=== PATIENT | female | born 1965 | race Caucasian/White ===

== ENCOUNTER 2017-04-12 16:54 | Observation (INO) | payer BC, OTHER ==
[~2017-04-12] VITALS: Ht 172.7 cm; Wt 168.3 kg
[~2017-04-12 16:54] MED LIST: PRENTAB26
[2017-04-12] MEDS ORDERED: SODIUM CHLORIDE 0.9% 1000ML 1,000 ML IV STA (18:37)
[2017-04-12] MEDS ORDERED: CALC500T85 PO (18:40)
[2017-04-12] MEDS ORDERED: CYAN100020 PO (18:40)
[2017-04-12] MEDS ORDERED: OPTIRAY 320 IV PRN (18:45)
[2017-04-12] MEDS ORDERED: MoRPHine SULFATE 10 MG/ML CARP/VIAL IV STA (18:46)
[2017-04-12] MEDS ORDERED: ONDANSETRON INJ 2 MG/ML 2 ML VIAL IV STA ×2 (18:46→22:44)
[2017-04-12] MEDS ORDERED: ONDANSETRON INJ 2 MG/ML 2 ML VIAL ONE (19:22)
[2017-04-12] MEDS ORDERED: MoRPHine SULFATE 10 MG/ML CARP/VIAL ONE (19:23)
[2017-04-12 19:28] LABS: BASO % 0.3 %; BASO ABS # 0.04 K/uL (0-0.2); COMPLETE YES; EOS % 1.7 %; HEMATOCRIT 38.8 % (37-47); IG% 0.3 %; LYMPH % 22.5 %; LYMPH ABS # 3.13 K/uL (1.2-3.4); MEAN CELL VOLUME 82.4 fL (80-100); MEAN CORPUSCULAR HEMOGLOBIN 27.8 pg (25-34); MEAN CORPUSCULAR HGB CONC 33.8 g/dl (32-36); MEAN PLATELET VOLUME 10.5 fL (7.4-10.4); MONO % 7.4 %; NEUT % 67.8 %; PLATELET COUNT 255 K/uL (130-400); RED BLOOD COUNT 4.71 M/uL (4.2-5.4); WHITE BLOOD COUNT 13.91 K/uL (4.8-10.8)
[2017-04-12 19:32] LABS: URINE APPEARANCE CLEAR (CLEAR); URINE BILIRUBIN NEG (NEG); URINE COLOR YELLOW; URINE EPITHELIAL CELL AUTO >30 /lpf (0-5); URINE NITRITE NEG (NEG); URINE PH 5.5 (4.5-7.5); URINE SPECIFIC GRAVITY 1.031 (1.000-1.030); UROBILINOGEN NEG (NEG); ZZUR CULT IF INDIC CLEAN CATCH NO
[2017-04-12 19:38] LABS: MANUAL MICROSCOPIC REQUIRED? NO; REVIEW REQ? NO
[2017-04-12 19:45] LABS: BUN/CREATININE RATIO 14.5 (10-20); CALCIUM 8.8 mg/dl (8.5-10.1); CREATININE 0.83 mg/dl (0.60-1.20); POTASSIUM 3.9 mmol/L (3.5-5.1)
[2017-04-12 19:48] LABS: ALB/GLOB RATIO 0.7 (0.9-2)
--- NOTE | 2017-04-12 20:43 | DIAGNOSTIC IMAGING REPORT ---
CT OF THE ABDOMEN AND PELVIS WITH CONTRAST CLINICAL HISTORY: Right lower quadrant abdominal pain. COMPARISON STUDY: None. TECHNIQUE: Following IV administration of 93 mL of Optiray-320, axial images of the abdomen and pelvis were obtained from the lung bases to the proximal femurs. Images were reviewed in the axial, sagittal, and coronal planes. IV contrast was administered without complication. A dose lowering technique was utilized adhering to the principles of ALARA. CT DOSE: 2216.71 mGy.cm FINDINGS: Lung bases are clear. There is no significant biliary ductal dilatation status post cholecystectomy. Mild hepatomegaly is present. There is borderline splenomegaly. The adrenal glands are nodular with possible hypodense nodules which may reflect adenomas. The findings are benign. The kidneys and pancreas are unremarkable. No hydronephrosis is present. There is no peripancreatic infiltration. The caliber and wall thickness of small and large bowel are normal. The appendix is normal. There is no pneumatosis, free air or portal venous gas. There is mild infiltration within the anterior aspect of the pelvis. A small amount of fluid which measures slightly above water attenuation is noted within the pelvis as well as along the inferior aspect the right hepatic lobe. There is no fluid collection to suggest an abscess. There is apparent endometrial thickening which is suboptimally assessed by CT. The ovaries are not well visualized on this exam but do not appear to be enlarged. There is no evidence for a bowel obstruction. There is laxity of the lower anterior abdominal wall with a possible fat-containing hernia. No suspicious skeletal lesions are identified. IMPRESSION: 1. Normal appendix. 2. Mild anterior pelvic infiltration with a small amount of fluid within the pelvis and along the inferior right hepatic lobe. Fluid measures above water attenuation and a small amount of hemoperitoneum possibly due to ruptured hemorrhagic cyst could have this imaging appearance. Alternately, an infectious process could appear similar. Correlation with beta hCG levels is recommended to exclude the possibility of an ectopic . 3. Endometrial thickening. This may be related to phase of menstrual cycle however a follow-up pelvic ultrasound could be obtained for further evaluation. 4. No bowel obstruction. Electronically signed by: Ren Flanagan M.D. 04/12/2017 8:41 PM Dictated Date/Time: 04/12/2017 8:29 PM
--- NOTE | 2017-04-12 23:00 | DIAGNOSTIC IMAGING REPORT ---
PELVIC ULTRASOUND CLINICAL HISTORY: Right-sided pelvic pain. Abnormal CT. COMPARISON STUDY: CT of the abdomen and pelvis April 12, 2017. TECHNIQUE: Transabdominal and transvaginal sonography of the pelvis was performed. FINDINGS: This exam was compromised due to suboptimal penetration related to body habitus. Neither ovary was visualized. A small amount of fluid was noted within the pelvis. The uterus was enlarged, measuring 12.5 x 6 x 9 cm. Endometrium measures 1.5 cm in thickness. Several nabothian cysts were noted. IMPRESSION: 1. Endometrial thickness of 1.5 cm. This could be correlated with phase of menstrual cycle. 2. Nonvisualization of the ovaries. Study compromised by suboptimal penetration. 3. Small amount of fluid within the pelvis. Electronically signed by: Ren Flanagan M.D. 04/12/2017 10:59 PM Dictated Date/Time: 04/12/2017 10:57 PM
[2017-04-12] MEDS ORDERED: KETOROLAC TROMETHAMINE 30 MG/ML VIAL IV STA (23:13)
[2017-04-13] MEDS ORDERED: HYDROmorphone INJ 1 MG/ML SYR IV PRN (00:15)
[2017-04-13 00:59] LABS: PARTIAL THROMBOPLASTIN RATIO 1.1
[2017-04-13 01:20] LABS: HEMATOCRIT 37.5 % (37-47)
--- NOTE | 2017-04-13 01:23 | EMERGENCY ROOM VISIT NOTE ---
History First contact with patient: 18:08 Chief Complaint: ABDOMINAL PAIN Stated Complaint: ABD PAIN Nursing Triage Summary: Patient c/o mid lower right abdominal pain since Tuesday. Got period . Pain is getting worse. Associates nausea, denies n/d. Last BM 1 week ago, hasn't taken meds. Denies urinary symptoms. History of Present Illness The patient is a 51 year old female who presents to the Emergency Room with complaints of right lower quadrant abdominal pain 3 days. The patient states that she currently has her menstrual period and has severe abdominal pain. The pain is located in the right lower abdomen. She rates the discomfort a 7/10. She has associated nausea, but no vomiting. She denies any urinary symptoms, fevers/chills or abnormal vaginal discharge. The patient reports that she has a history of heavy menstrual periods and sometimes has painful periods. She started Depo-Provera last month due to heavy bleeding. She follows with [facility] in [place]. She states that she has had a workup for the heavy bleeding, but no cause has been found. The patient does admit that she has not had a bowel movement in 1 week and feels like she could be constipated. She has not taken anything at home for pain. Review of Systems A complete 10 point review of systems was reviewed with the patient with pertinent positives and negatives as per history of present illness. All else were negative. Social History Smoking Status: Former Smoker Current/Historical Medications Scheduled Calcium (Ra Calcium), 500 MG PO DAILY Cyanocobalamin (Vitamin B12), 1,000 MCG PO DAILY Allergies Coded Allergies: Ampicillin (Verified Allergy, Mild, 04/12/17) Sulfa Drugs (Verified Allergy, Mild, 04/12/17) Sulfamethoxazole (Verified Allergy, Mild, 04/12/17) Trimethoprim (Verified Allergy, Mild, 04/12/17) Cephalosporins (Unverified Allergy, Unknown, UNKNOWN, 04/12/17) Physical Exam Vital Signs Date Time Temp Pulse Resp B/P (MAP) Pulse Ox O2 Delivery O2 Flow Rate FiO2 04/13/17 00:17 85 21 120/79 93 Room Air 04/12/17 22:59 93 20 119/76 93 Room Air 04/12/17 21:16 98 18 137/89 92 Room Air 04/12/17 20:44 94 12 155/83 94 Room Air Manual 04/12/17 19:00 93 20 167/100 97 Room Air 04/12/17 17:03 36.7 108 20 140/86 99 Physical Exam VITALS: Vitals are noted on the nurse's note and reviewed by myself. Vital signs stable. GENERAL: This is a 51-year-old obese female, tearful, appears uncomfortable. EYES: Pupils equal round and reactive to light and accommodation. MOUTH: Mucous membranes moist. NECK: Supple without nuchal rigidity. HEART: Regular rate and rhythm without murmurs gallops or rubs. LUNGS: Clear to auscultation bilaterally without wheezes, rales or rhonchi. ABDOMEN: Positive bowel sounds x 4. Soft, mild generalized tenderness with moderate tenderness over the right lower quadrant. No guarding or rebound tenderness. PELVIC: External genitalia unremarkable. Small amount of blood from the cervical os. No abnormal or foul-smelling discharge. No cervical motion or adnexal tenderness. NEURO: Patient was alert and oriented to person place and time. Medical Decision & Procedures ER Provider Diagnostic Interpretation: CT OF THE ABDOMEN AND PELVIS WITH CONTRAST IMPRESSION: 1. Normal appendix. 2. Mild anterior pelvic infiltration with a small amount of fluid within the pelvis and along the inferior right hepatic lobe. Fluid measures above water attenuation and a small amount of hemoperitoneum possibly due to ruptured hemorrhagic cyst could have this imaging appearance. Alternately, an infectious process could appear similar. Correlation with beta hCG levels is recommended to exclude the possibility of an ectopic . 3. Endometrial thickening. This may be related to phase of menstrual cycle however a follow-up pelvic ultrasound could be obtained for further evaluation. 4. No bowel obstruction. PELVIC ULTRASOUND IMPRESSION: 1. Endometrial thickness of 1.5 cm. This could be correlated with phase of menstrual cycle. 2. Nonvisualization of the ovaries. Study compromised by suboptimal penetration. 3. Small amount of fluid within the pelvis. Laboratory Results 04/12/17 19:10 Red Blood Count 4.71, Mean Corpuscular Volume 82.4, Mean Corpuscular Hemoglobin 27.8, Mean Corpuscular Hemoglobin Concent 33.8, Mean Platelet Volume 10.5, Neutrophils (%) (Auto) 67.8, Lymphocytes (%) (Auto) 22.5, Monocytes (%) (Auto) 7.4, Eosinophils (%) (Auto) 1.7, Basophils (%) (Auto) 0.3, Neutrophils # (Auto) 9.44, Lymphocytes # (Auto) 3.13, Monocytes # (Auto) 1.03, Eosinophils # (Auto) 0.23, Basophils # (Auto) 0.04 04/12/17 19:10 Test 04/12/17 19:00 04/12/17 19:10 04/13/17 01:06 Urine Color YELLOW Urine Appearance CLEAR (CLEAR) Urine pH 5.5 (4.5-7.5) Urine Specific [place] 1.031 (1.000-1.030) Urine Protein TRACE (NEG) Urine Glucose (UA) NEG (NEG) Urine Ketones TRACE (NEG) Urine Occult Blood 3+ (NEG) Urine Nitrite NEG (NEG) Urine Bilirubin NEG (NEG) Urine Urobilinogen NEG (NEG) Urine Leukocyte Esterase TRACE (NEG) Urine WBC (Auto) 5-10 /hpf (0-5) Urine RBC (Auto) 5-10 /hpf (0-4) Urine Hyaline Casts (Auto) 1-5 /lpf (0-5) Urine Epithelial Cells (Auto) >30 /lpf (0-5) Urine Bacteria (Auto) NEG (NEG) Urine Test NEG (NEG) White Blood Count 13.91 K/uL (4.8-10.8) Red Blood Count 4.71 M/uL (4.2-5.4) Hemoglobin 13.1 g/dL (12.0-16.0) Hematocrit 38.8 % (37-47) Mean Corpuscular Volume 82.4 fL (80-100) Mean Corpuscular Hemoglobin 27.8 pg (25-34) Mean Corpuscular Hemoglobin Concent 33.8 g/dl (32-36) Platelet Count 255 K/uL (130-400) Mean Platelet Volume 10.5 fL (7.4-10.4) Neutrophils (%) (Auto) 67.8 % Lymphocytes (%) (Auto) 22.5 % Monocytes (%) (Auto) 7.4 % Eosinophils (%) (Auto) 1.7 % Basophils (%) (Auto) 0.3 % Neutrophils # (Auto) 9.44 K/uL (1.4-6.5) Lymphocytes # (Auto) 3.13 K/uL (1.2-3.4) Monocytes # (Auto) 1.03 K/uL (0.11-0.59) Eosinophils # (Auto) 0.23 K/uL (0-0.5) Basophils # (Auto) 0.04 K/uL (0-0.2) RDW Standard Deviation 39.3 fL (36.4-46.3) RDW Coefficient of Variation 13.0 % (11.5-14.5) Immature Granulocyte % (Auto) 0.3 % Immature Granulocyte # (Auto) 0.04 K/uL (0.00-0.02) Activated Partial Thromboplast Time 27.4 SECONDS (21.0-31.0) Partial Thromboplastin Ratio 1.1 Anion Gap 7.0 mmol/L (3-11) Est Creatinine Clear Calc Drug Dose 133.5 ml/min Estimated GFR () 96.0 Estimated GFR (Non- 82.8 BUN/Creatinine Ratio 14.5 (10-20) Calcium Level 8.8 mg/dl (8.5-10.1) Magnesium Level 2.0 mg/dl (1.8-2.4) Total Bilirubin 0.9 mg/dl (0.2-1) Aspartate Amino Transf (AST/SGOT) 9 U/L (15-37) Alanine Aminotransferase (ALT/SGPT) 16 U/L (12-78) Alkaline Phosphatase 72 U/L (45-117) Total Protein 7.8 gm/dl (6.4-8.2) Albumin 3.2 gm/dl (3.4-5.0) Globulin 4.6 gm/dl (2.5-4.0) Albumin/Globulin Ratio 0.7 (0.9-2) Lipase 118 U/L (73-393) Medications Administered Medications (Trade) Dose Ordered Sig/Sy Route Start Time Stop Time Status Last Admin Dose Admin Sodium Chloride 1,000 ml @ 999 mls/hr Q1H1M STAT IV 04/12/17 18:37 04/12/17 19:37 DC 04/12/17 18:37 999 MLS/HR Morphine Sulfate (MoRPHine SULFATE INJ) 8 mg NOW STAT IV 04/12/17 18:46 04/12/17 18:48 DC 04/12/17 19:27 8 MG Ondansetron HCl (Zofran Inj) 4 mg NOW STAT IV 04/12/17 18:46 04/12/17 18:48 DC 04/12/17 19:27 4 MG Ondansetron HCl (Zofran Inj) 4 mg NOW STAT IV 04/12/17 22:44 04/12/17 22:45 DC 04/12/17 22:56 4 MG Ketorolac Tromethamine (Toradol Inj) 30 mg NOW STAT IV 04/12/17 23:13 04/12/17 23:14 DC 04/12/17 23:23 30 MG Hydromorphone HCl (Dilaudid Inj) 1 mg Q1H PRN IV 04/13/17 00:15 04/27/17 00:14 04/13/17 00:22 1 MG ED Course The patient was evaluated as above. Labs were drawn and IV access was obtained. Patient was medicated with 8 mg morphine IV, 4 mg Zofran IV, and 1 L normal saline solution. CT of the abdomen and pelvis was performed and read by radiology as above. Patient was reevaluated and findings were discussed. Pelvic ultrasound was ordered. Ultrasound was performed. Patient is still having pain and was given 30 mg Toradol IV. Pelvic exam was performed. Patient was reevaluated and findings were discussed. Options of care including discharge home versus admission/observation for pain control were discussed with the patient and her sister. The sister does not feel she will be able to take the patient home in this amount of pain. The patient like to stay. Case was discussed with the [facility] hospitalist, Dr. Alvarez. He requested that I speak with [facility] [employer]. I discussed the case with Dr. Briones of [facility]. He is agreeable to consult on the patient tomorrow. Medical Decision Differential diagnosis includes ovarian cyst, ovarian torsion, appendicitis, colitis, constipation, urinary tract infection, PID, mesenteric ischemia, among others. The patient is a 51-year-old female who presents today complaining of right lower quadrant abdominal pain. Labs revealed mild leukocytosis of 13,000 consistent with infection or possibly stress/pain. No concerning anemia or electrolyte abnormalities. Urinalysis was suggestive of contamination. CT of the abdomen and pelvis showed findings consistent with possible ruptured ovarian cyst versus infectious process. A pelvic exam was performed and showed no abnormal discharge or CMT/adnexal tenderness, making infectious process unlikely. Pelvic ultrasound was performed but was unable to visualize the ovaries secondary to patient body habitus. The patient was initially treated with morphine for pain, however she did not tolerate this well and felt that it made her very nauseous. She was then treated with Toradol without relief. A reevaluated the patient multiple times and explained findings multiple times with the patient and her sister. They were very upset that the patient had to wait in the waiting room and that the testing was taking several hours to complete without any clear answers. I attempted to explain that the emergency department was very busy and we were doing everything we could to keep the patient comfortable. I discussed options of care including discharged home with pain medication versus admission/ observation. The patient's sister seemed upset that we would consider sending the patient home and did not feel like the patient to return home. The patient also felt that she would be more comfortable staying in the hospital. For this reason, the [facility] hospitalist service was consulted. Case was also discussed with [facility]. The patient's case was reviewed with Dr. Reilly, ED attending physician, who agreed with my assessment and treatment plan. Medication reconciliation: I attest that I have personally reviewed the patient 's current medication list. Blood Pressure Screening: Patient was found to have a slightly elevated blood pressure due to circumstances which improved after pain control. I do not believe that the patient requires hypertension monitoring. Impression Primary Impression: Right lower quadrant abdominal pain Departure Information Referrals Radha Reyes M.D. (PCP) Patient Instructions My [facility]
[2017-04-13] MEDS ORDERED: LACTULOSE SYRUP 20 GM/30 ML UDC PO STA ×3 (01:27→06:22)
[2017-04-13] MEDS ORDERED: ACETAMINOPHEN 325 MG TAB PO PRN (01:30)
[2017-04-13] MEDS ORDERED: GLUCOSE 10 TABS/TUBE PO PRN (01:30)
[2017-04-13] MEDS ORDERED: PROMETHAZINE HCL INJ 12.5 MG in SODIUM CHLORIDE 0.9% 50ML 50 ML IV PRN (01:30)
[2017-04-13] MEDS ORDERED: HYDROmorphone INJ 0.5 MG/0.5 ML SYR IV PRN (01:30)
[2017-04-13] MEDS ORDERED: LORAZEPAM 2 MG/ML 1 ML VIAL IV PRN (01:30)
[2017-04-13] MEDS ORDERED: DEXTROSE 50% 50 ML SYR IV PRN (01:30)
[2017-04-13] MEDS ORDERED: ONDANSETRON INJ 2 MG/ML 2 ML VIAL IV PRN (01:30)
[2017-04-13] MEDS ORDERED: GLUCOSE 40% GEL 15 GM TUBE PO PRN (01:30)
[2017-04-13] MEDS ORDERED: IBUPROFEN 200 MG TAB PO PRN (01:30)
[2017-04-13] MEDS ORDERED: GLUCAGON FOR INJ 1 MG VIAL SQ PRN (01:30)
[2017-04-13] MEDS ORDERED: TRAMADOL HCL 50 MG TAB PO PRN (01:30)
[2017-04-13] MEDS ORDERED: POLYETHYLENE (MIRALAX) 17 GM PACK PO PRN (01:30)
[2017-04-13] MEDS ORDERED: POLYETHYLENE (MIRALAX) 17 GM PACK PO STA (01:47)
[2017-04-13] MEDS ORDERED: NSS + 20MEQ KCL 1000ML 1,000 ML IV ONE (03:00)
[2017-04-13 03:05] VITALS: BP 129/79; PULSE 86; TEMP 36.6; O2SAT 91; Ht 172.7 cm; Wt 168.3 kg
[2017-04-13 05:45] LABS: BASO % 0.1 %; BASO ABS # 0.01 K/uL (0-0.2); COMPLETE YES; EOS % 0.5 %; HEMATOCRIT 36.9 % (37-47); IG% 0.2 %; LYMPH % 13.1 %; LYMPH ABS # 1.65 K/uL (1.2-3.4); MEAN CELL VOLUME 83.9 fL (80-100); MEAN CORPUSCULAR HEMOGLOBIN 27.5 pg (25-34); MEAN CORPUSCULAR HGB CONC 32.8 g/dl (32-36); MEAN PLATELET VOLUME 10.1 fL (7.4-10.4); MONO % 7.8 %; NEUT % 78.3 %; PLATELET COUNT 233 K/uL (130-400); WHITE BLOOD COUNT 12.55 K/uL (4.8-10.8)
[2017-04-13] MEDS ORDERED: IV FLUIDS COMPLETED PRN (06:00)
--- NOTE | 2017-04-13 06:25 | HISTORY & PHYSICAL EXAMINATION ---
DATE OF ADMISSION: 04/13/2017 PRIMARY CARE PHYSICIAN: Dr. Reyes. CHIEF COMPLAINT: Right lower quadrant pain. HISTORY OF PRESENT ILLNESS: History obtained from patient, patient's sister and records. Medical history significant for obesity, past tobacco abuse, prediabetes. Over the last few days, the patient noted right lower quadrant achy excruciating, coinciding with her menstrual period. Vaginal bleeding not unusually heavy. No chest pain, no shortness of breath, no fever, no dysuria. No bowel movement for 1 week as per patient. Intractable pain in the Emergency Room. MEDICAL HISTORY: As above. Px was seeing [facility] gynecology in [place], Dr. Cordon, for menorrhagia status post failed ablation. Last visit 02/24/2017. Trial of Depo-Provera injection, Possible hysterectomy if without success. SURGERIES: She has had cholecystectomy, gynecologic procedures. Cataract surgery. FAMILY HISTORY: Diabetes, melanoma. PERSONAL AND SOCIAL HISTORY: Past tobacco abuse. No chronic intake of alcoholic beverages. She is a correspondence renew clerk. HOME MEDICATIONS: Include cyanocobalamin, cholecalciferol, metformin, Depo-Provera. ALLERGIES: AMPICILLIN, LEVOFLOXACIN AND SULFA. REVIEW OF SYSTEMS: As per HPI, all other ROS negative. PHYSICAL EXAMINATION: VITAL SIGNS: Blood pressure was noted to be 140/86, pulse rate 108, later 98, RR 20, temperature 36.7, sats 99 on room air. GENERAL: Noted to be obese, slightly uncomfortable, no distress. SKIN: Normal color. HEENT: [place] palpebral conjunctivae. Dry mucosa. NECK: Short neck. LUNGS: Decreased breath sounds. HEART: Regular rate and rhythm. ABDOMEN: Right lower quadrant tenderness. EXTREMITIES: Minimal lower extremity edema, no tenderness NEUROLOGIC: No gross focality. LABS: Hemoglobin 13.1, hematocrit 38, white blood count 13.9, platelets 255. Sodium 140, potassium 3.9, chloride 108, CO2 of 26, BUN 12, creatinine 0.8, glucose was noted to be 90. CT of the abdomen and pelvis showed normal appendix, mild anterior pelvic inflammation, small amount of fluid in pelvis and inferior right hepatic lobe, small amount of hemoperitoneum, endometrial thickening. ASSESSMENT: 1. Intractable abdominal pain multifactorial : ruptured hemorrhagic ovarian cyst with hemoperitoneum constipation. 2. Prediabetes, BGs stable 3. past tobacco abuse. PLAN : OBS GMF analgesia preferably with NSAIDs, judicious narcotic use given constipation Laxatives Gynecology consult RE R pelvic pain, abnormal CT (ER provider in touch with Dr. Briones) DVT prophylaxis SCDs Re: Hemoperitoneum. Full code. Patient's sister requesting updates from providers, Ms. Lucio Mak Brenda at [phone]. MTDD
[2017-04-13 06:34] LABS: ESTIMATED AVERAGE GLUCOSE 117 mg/dl; HA1C FLAG Normal (Normal)
[2017-04-13] MEDS: KETOROLAC TROMETHAMINE 30 MG/ML VIAL IV PRN ×2 (06:36→16:33)
[2017-04-13 07:08] VITALS: BP 148/91; PULSE 88; TEMP 36.7; O2SAT 91
[2017-04-13] MEDS: INSULIN ASPART 100 UNITS/ML 3 ML PEN SC SCH ×4 (07:51→20:45)
[2017-04-13 08:00] VITALS: O2SAT 91
[2017-04-13 12:00] LABS: HEMATOCRIT 35.4 % (37-47)
[2017-04-13] MEDS: DOCUSATE SODIUM/SENNA 50/8.6MG TAB PO SCH ×2 (13:03→20:35)
[2017-04-13] MEDS: CYANOCOBALAMIN 500 MCG TAB (VIT B-12) PO SCH (13:07)
--- NOTE | 2017-04-13 14:58 | Progress Note ---
Internal Med Progress Note Date of Service: Apr 13, 2017. Provider Documentation: SUBJECTIVE: The patient was seen and examined Still complains of right lower quadrant pain Heavy vaginal bleeding continues Bowel moved this morning OBJECTIVE: Vital Signs-as noted below Exam: General-Very Obese wiht minimal discomfort at rets Eyes-normal ENT-normal Neck-supple Lungs-Clear to ausucltate bilaterally Heart-Regular,no murmur Abdomen-Distended,soft,difficult to feel for any organs mildly tender RLQ and Hypogastrium Extremities-Trace edema bilaterally Neuro-AAOx3 Lab data as noted below. CT of the Abdomen and Pelvis 1. Normal appendix. 2. Mild anterior pelvic infiltration with a small amount of fluid within the pelvis and along the inferior right hepatic lobe. Fluid measures above water attenuation and a small amount of hemoperitoneum possibly due to ruptured hemorrhagic cyst could have this imaging appearance. Alternately, an infectious process could appear similar. Correlation with beta hCG levels is recommended to exclude the possibility of an ectopic . 3. Endometrial thickening. This may be related to phase of menstrual cycle however a follow-up pelvic ultrasound could be obtained for further evaluation. 4. No bowel obstruction. Transvaginal US::1. Endometrial thickness of 1.5 cm. This could be correlated with phase of menstrual cycle. 2. Nonvisualization of the ovaries. Study compromised by suboptimal penetration. 3. Small amount of fluid within the pelvis. ASSESSMENT & PLAN: Intractable abdominal pain Multifactorial : -ruptured hemorrhagic ovarian cyst with hemoperitoneum -constipation.---Bowel moved and No obstruction -Menorrhagia Analgesia preferably with NSAIDs, judicious narcotic use given constipation Laxatives Gynecology consult RE CT and US as above Await HOMOEOPATH evaluation Likely to be discharged today Obesity Will need OP counselling Prediabetes, BGs stable Past tobacco abuse. DVT prophylaxis SCDs Re: Hemoperitoneum. Full code. Discussed with Significant other Vital Signs: Date Time Temp Pulse Resp B/P (MAP) Pulse Ox O2 Delivery O2 Flow Rate FiO2 04/13/17 08:00 91 Nasal Cannula 2.0 04/13/17 07:08 36.7 88 18 148/91 (110) 91 04/13/17 03:05 36.6 86 18 129/79 91 Nasal Cannula 2.0 04/13/17 02:01 78 17 123/71 95 Room Air 04/13/17 00:17 85 21 120/79 93 Room Air 04/12/17 22:59 93 20 119/76 93 Room Air 04/12/17 21:16 98 18 137/89 92 Room Air 04/12/17 20:44 94 12 155/83 94 Room Air Manual 04/12/17 19:00 93 20 167/100 97 Room Air 04/12/17 17:03 36.7 108 20 140/86 99 Lab Results: Results Past 24 Hours Test 04/12/17 19:00 04/12/17 19:10 04/13/17 01:06 04/13/17 05:37 Range/Units Urine Color YELLOW Urine Appearance CLEAR CLEAR Urine pH 5.5 4.5-7.5 Urine Specific [place] 1.031 1.000-1.030 Urine Protein TRACE NEG Urine Glucose (UA) NEG NEG Urine Ketones TRACE NEG Urine Occult Blood 3+ NEG Urine Nitrite NEG NEG Urine Bilirubin NEG NEG Urine Urobilinogen NEG NEG Urine Leukocyte Esterase TRACE NEG Urine WBC (Auto) 5-10 0-5 /hpf Urine RBC (Auto) 5-10 0-4 /hpf Urine Hyaline Casts (Auto) 1-5 0-5 /lpf Urine Epithelial Cells (Auto) >30 0-5 /lpf Urine Bacteria (Auto) NEG NEG Urine Test NEG NEG White Blood Count 13.91 12.55 4.8-10.8 K/uL Red Blood Count 4.71 4.40 4.2-5.4 M/uL Hemoglobin 13.1 12.2 12.1 12.0-16.0 g/dL Hematocrit 38.8 37.5 36.9 37-47 % Mean Corpuscular Volume 82.4 83.9 80-100 fL Mean Corpuscular Hemoglobin 27.8 27.5 25-34 pg Mean Corpuscular Hemoglobin Concent 33.8 32.8 32-36 g/dl Platelet Count 255 233 130-400 K/uL Mean Platelet Volume 10.5 10.1 7.4-10.4 fL Neutrophils (%) (Auto) 67.8 78.3 % Lymphocytes (%) (Auto) 22.5 13.1 % Monocytes (%) (Auto) 7.4 7.8 % Eosinophils (%) (Auto) 1.7 0.5 % Basophils (%) (Auto) 0.3 0.1 % Neutrophils # (Auto) 9.44 9.82 1.4-6.5 K/uL Lymphocytes # (Auto) 3.13 1.65 1.2-3.4 K/uL Monocytes # (Auto) 1.03 0.98 0.11-0.59 K/uL Eosinophils # (Auto) 0.23 0.06 0-0.5 K/uL Basophils # (Auto) 0.04 0.01 0-0.2 K/uL RDW Standard Deviation 39.3 39.2 36.4-46.3 fL RDW Coefficient of Variation 13.0 12.9 11.5-14.5 % Immature Granulocyte % (Auto) 0.3 0.2 % Immature Granulocyte # (Auto) 0.04 0.03 0.00-0.02 K/uL Activated Partial Thromboplast Time 27.4 21.0-31.0 SECONDS Partial Thromboplastin Ratio 1.1 Sodium Level 141 136-145 mmol/L Potassium Level 3.9 3.5-5.1 mmol/L Chloride Level 108 98-107 mmol/L Carbon Dioxide Level 26 21-32 mmol/L Anion Gap 7.0 3-11 mmol/L Blood Urea Nitrogen 12 7-18 mg/dl Creatinine 0.83 0.60-1.20 mg/dl Est Creatinine Clear Calc Drug Dose 133.5 ml/min Estimated GFR () 96.0 Estimated GFR (Non- 82.8 BUN/Creatinine Ratio 14.5 10-20 Random Glucose 90 70-99 mg/dl Estimated Average Glucose 117 mg/dl Hemoglobin A1c 5.7 4.5-5.6 % Calcium Level 8.8 8.5-10.1 mg/dl Magnesium Level 2.0 1.8-2.4 mg/dl Total Bilirubin 0.9 0.2-1 mg/dl Aspartate Amino Transf (AST/SGOT) 9 15-37 U/L Alanine Aminotransferase (ALT/SGPT) 16 12-78 U/L Alkaline Phosphatase 72 45-117 U/L Total Protein 7.8 6.4-8.2 gm/dl Albumin 3.2 3.4-5.0 gm/dl Globulin 4.6 2.5-4.0 gm/dl Albumin/Globulin Ratio 0.7 0.9-2 Lipase 118 73-393 U/L Lactic Acid Level 0.6 0.4-2.0 mmol/L Test 04/13/17 07:39 04/13/17 11:24 04/13/17 11:50 Range/Units Bedside Glucose 115 92 70-90 mg/dl Hemoglobin 11.7 12.0-16.0 g/dL Hematocrit 35.4 37-47 % Microbiology Results 04/13/17 Blood Culture, Received Pending 04/13/17 Blood Culture, Received Pending 04/12/17 Urine Culture, Received Pending
[2017-04-13 15:26] VITALS: BP 122/76; PULSE 87; TEMP 36.8; O2SAT 95
[2017-04-13 23:14] VITALS: PULSE 87; O2SAT 94
[2017-04-14 00:24] VITALS: BP 128/74; PULSE 81; TEMP 36.7; O2SAT 95
[2017-04-14] MEDS: KETOROLAC TROMETHAMINE 30 MG/ML VIAL IV PRN (06:38)
[2017-04-14 07:23] LABS: BASO % 0.2 %; BASO ABS # 0.02 K/uL (0-0.2); COMPLETE YES; EOS % 3.5 %; HEMATOCRIT 35.5 % (37-47); IG% 0.3 %; LYMPH % 23.9 %; LYMPH ABS # 2.31 K/uL (1.2-3.4); MEAN CELL VOLUME 83.1 fL (80-100); MEAN CORPUSCULAR HEMOGLOBIN 27.9 pg (25-34); MEAN CORPUSCULAR HGB CONC 33.5 g/dl (32-36); MEAN PLATELET VOLUME 10.5 fL (7.4-10.4); MONO % 7.6 %; NEUT % 64.5 %; PLATELET COUNT 227 K/uL (130-400); RED BLOOD COUNT 4.27 M/uL (4.2-5.4); WHITE BLOOD COUNT 9.65 K/uL (4.8-10.8)
[2017-04-14 07:42] VITALS: BP 138/70; PULSE 86; TEMP 36.8; O2SAT 91
[2017-04-14 08:00] VITALS: O2SAT 91
[2017-04-14] MEDS: INSULIN ASPART 100 UNITS/ML 3 ML PEN SC SCH (08:01)
[2017-04-14] MEDS: CYANOCOBALAMIN 500 MCG TAB (VIT B-12) PO SCH (08:38)
[2017-04-14] MEDS: DOCUSATE SODIUM/SENNA 50/8.6MG TAB PO SCH (08:38)
--- NOTE | 2017-04-14 10:50 | Progress Note ---
Internal Med Progress Note Date of Service: Apr 14, 2017. Provider Documentation: SUBJECTIVE: The patient was seen and examined Still complains of right lower quadrant pain Heavy vaginal bleeding continues-intermittently Bowel moved yesterday OBJECTIVE: Vital Signs-as noted below Exam: General-Very Obese with minimal discomfort at rest Eyes-normal ENT-normal Neck-supple Lungs-Clear to ausucltate bilaterally Heart-Regular,no murmur Abdomen-Distended,soft,difficult to feel for any organs mildly tender RLQ and epigastrium Extremities-Trace edema bilaterally Neuro-AAOx3 Lab data as noted below. CT of the Abdomen and Pelvis 1. Normal appendix. 2. Mild anterior pelvic infiltration with a small amount of fluid within the pelvis and along the inferior right hepatic lobe. Fluid measures above water attenuation and a small amount of hemoperitoneum possibly due to ruptured hemorrhagic cyst could have this imaging appearance. Alternately, an infectious process could appear similar. Correlation with beta hCG levels is recommended to exclude the possibility of an ectopic . 3. Endometrial thickening. This may be related to phase of menstrual cycle however a follow-up pelvic ultrasound could be obtained for further evaluation. 4. No bowel obstruction. Transvaginal US::1. Endometrial thickness of 1.5 cm. This could be correlated with phase of menstrual cycle. 2. Nonvisualization of the ovaries. Study compromised by suboptimal penetration. 3. Small amount of fluid within the pelvis. ASSESSMENT & PLAN: Intractable abdominal pain Multifactorial : -ruptured hemorrhagic ovarian cyst with hemoperitoneum -constipation.---Bowel moved and No obstruction -Menorrhagia Analgesia preferably with NSAIDs, judicious narcotic use given constipation Laxatives Gynecology consult RE CT and US as above Await SPANISH INSTRUCTOR evaluation Abdominal pain is a little better Likely to be discharged today after evaluation by SPANISH INSTRUCTOR Obesity Will need OP counselling Prediabetes, BGs stable Past tobacco abuse. DVT prophylaxis SCDs Re: Hemoperitoneum. Full code. Discussed with Significant other Vital Signs: Date Time Temp Pulse Resp B/P (MAP) Pulse Ox O2 Delivery O2 Flow Rate FiO2 04/14/17 08:00 91 Nasal Cannula 04/14/17 07:42 36.8 86 18 138/70 (92) 91 Room Air 04/14/17 00:24 36.7 81 20 128/74 (92) 95 CPAP 04/14/17 00:00 CPAP 04/13/17 23:14 87 94 04/13/17 16:10 Room Air 04/13/17 15:26 36.8 87 20 122/76 (91) 95 Lab Results: Results Past 24 Hours Test 04/13/17 11:24 04/13/17 11:50 04/13/17 16:30 04/13/17 20:43 Range/Units Bedside Glucose 92 80 79 70-90 mg/dl Hemoglobin 11.7 12.0-16.0 g/dL Hematocrit 35.4 37-47 % Test 04/14/17 06:50 04/14/17 07:40 Range/Units White Blood Count 9.65 4.8-10.8 K/uL Red Blood Count 4.27 4.2-5.4 M/uL Hemoglobin 11.9 12.0-16.0 g/dL Hematocrit 35.5 37-47 % Mean Corpuscular Volume 83.1 80-100 fL Mean Corpuscular Hemoglobin 27.9 25-34 pg Mean Corpuscular Hemoglobin Concent 33.5 32-36 g/dl Platelet Count 227 130-400 K/uL Mean Platelet Volume 10.5 7.4-10.4 fL Neutrophils (%) (Auto) 64.5 % Lymphocytes (%) (Auto) 23.9 % Monocytes (%) (Auto) 7.6 % Eosinophils (%) (Auto) 3.5 % Basophils (%) (Auto) 0.2 % Neutrophils # (Auto) 6.22 1.4-6.5 K/uL Lymphocytes # (Auto) 2.31 1.2-3.4 K/uL Monocytes # (Auto) 0.73 0.11-0.59 K/uL Eosinophils # (Auto) 0.34 0-0.5 K/uL Basophils # (Auto) 0.02 0-0.2 K/uL RDW Standard Deviation 39.3 36.4-46.3 fL RDW Coefficient of Variation 13.0 11.5-14.5 % Immature Granulocyte % (Auto) 0.3 % Immature Granulocyte # (Auto) 0.03 0.00-0.02 K/uL Bedside Glucose 91 70-90 mg/dl
--- NOTE | 2017-04-14 11:35 | Progress Note ---
Progress Note Date of Service Apr 14, 2017. Progress Note EMERGENCY DEPARTMENT CLINICIAN Consult Consult placed by Dr Vidales Pt seen and examined Consult dictated A/Plan Vag. bleeding is presently minimal and stable Stable H/H Pt will l f/u with Dr Cabral her Primary EMERGENCY DEPARTMENT CLINICIAN in [place] She has already scheduled an appt. with his office Thank you for the consult
[2017-04-14 11:37] VITALS: BP 138/70; PULSE 86; TEMP 36.8; O2SAT 91
--- NOTE | 2017-04-14 11:52 | Discharge Instructions ---
Discharge Instructions Date of Service Apr 14, 2017. Admission Reason for Admission: Abdominal Pain Discharge Discharge Diagnosis / Problem: Menorrhagia,Abdominla pian Discharge Goals Goal(s): Prevent Disease Progression Activity Recommendations Activity Limitations: resume your previous activity . Instructions / Follow-Up Instructions / Follow-Up Please make an appointment with your PCP in 1 week and keep appointment with your RESIDENTIAL PROGRAM WORKER Current Hospital Diet Patient's current hospital diet: Clear Liquid Diet Discharge Diet Recommended Diet: Regular Diet Pending Studies Studies pending at discharge: no Laboratory Results Hemoglobin A1c Test 04/12/17 19:10 Range/Units Estimated Average Glucose 117 mg/dl Hemoglobin A1c 5.7 H 4.5-5.6 % Medical Emergencies . Who to Call and When: Medical Emergencies: If at any time you feel your situation is an emergency, please call 911 immediately. . Non-Emergent Contact Non-Emergency issues call your: Primary Care Provider . . "Provider Documentation" section prepared by Catrachita Vidales. . VTE Core Measure Inpt VTE Proph given/why not?: SCD's
--- NOTE | 2017-04-15 08:10 | Discharge Summary ---
Discharge Summary Date of Service Apr 15, 2017. Discharge Summary Admission Date: Apr 13, 2017 at 01:20 Discharge Date: Apr 14, 2017 Discharge Disposition: Home Principal Diagnosis: Menorrhagia,Abdominal pain Secondary Diagnoses/Problems: Please see H&P and Hospital progress notes Consultations: PATIENT CARE ASSISTANT Medication Reconciliation Continued Medications: Calcium (Ra Calcium) 500 Mg Tab 500 MG PO DAILY Cyanocobalamin (Vitamin B12) 1,000 Mcg Tab 1000 MCG PO DAILY Admission Information HPI (per Admitting provider): DATE OF ADMISSION: 04/13/2017 PRIMARY CARE PHYSICIAN: Dr. Reyes. CHIEF COMPLAINT: Right lower quadrant pain. HISTORY OF PRESENT ILLNESS: History obtained from patient, patient's sister and records. Medical history significant for obesity, past tobacco abuse, prediabetes. Over the last few days, the patient noted right lower quadrant achy excruciating, coinciding with her menstrual period. Vaginal bleeding not unusually heavy. No chest pain, no shortness of breath, no fever, no dysuria. No bowel movement for 1 week as per patient. Intractable pain in the Emergency Room. MEDICAL HISTORY: As above. Px was seeing [facility] in [place], Dr. Cordon, for menorrhagia status post failed ablation. Last visit 02/24/2017. Trial of Depo-Provera injection, Possible hysterectomy if without success. SURGERIES: She has had cholecystectomy, gynecologic procedures. Cataract surgery. FAMILY HISTORY: Diabetes, melanoma. PERSONAL AND SOCIAL HISTORY: Past tobacco abuse. No chronic intake of alcoholic beverages. She is a warehouse shipping receiving clerk. HOME MEDICATIONS: Include cyanocobalamin, cholecalciferol, metformin, Depo-Provera. ALLERGIES: AMPICILLIN, LEVOFLOXACIN AND SULFA. REVIEW OF SYSTEMS: As per HPI, all other ROS negative. PHYSICAL EXAMINATION: VITAL SIGNS: Blood pressure was noted to be 140/86, pulse rate 108, later 98, RR 20, temperature 36.7, sats 99 on room air. GENERAL: Noted to be obese, slightly uncomfortable, no distress. SKIN: Normal color. HEENT: [place] palpebral conjunctivae. Dry mucosa. NECK: Short neck. LUNGS: Decreased breath sounds. HEART: Regular rate and rhythm. ABDOMEN: Right lower quadrant tenderness. EXTREMITIES: Minimal lower extremity edema, no tenderness NEUROLOGIC: No gross focality. LABS: Hemoglobin 13.1, hematocrit 38, white blood count 13.9, platelets 255. Sodium 140, potassium 3.9, chloride 108, CO2 of 26, BUN 12, creatinine 0.8, glucose was noted to be 90. CT of the abdomen and pelvis showed normal appendix, mild anterior pelvic inflammation, small amount of fluid in pelvis and inferior right hepatic lobe, small amount of hemoperitoneum, endometrial thickening. ASSESSMENT: 1. Intractable abdominal pain multifactorial : ruptured hemorrhagic ovarian cyst with hemoperitoneum constipation. 2. Prediabetes, BGs stable 3. past tobacco abuse. PLAN : OBS GMF analgesia preferably with NSAIDs, judicious narcotic use given constipation Laxatives Gynecology consult RE R pelvic pain, abnormal CT (ER provider in touch with Dr. Briones) DVT prophylaxis SCDs Re: Hemoperitoneum. Full code. Patient's sister requesting updates from providers, Ms. Lucio Gutierrez at [phone]. Hospital Course Intractable abdominal pain Multifactorial : -ruptured hemorrhagic ovarian cyst with hemoperitoneum -constipation.---Bowel moved and No obstruction -Menorrhagia Analgesia preferably with NSAIDs, judicious narcotic use given constipation Laxatives Gynecology consult RE CT and US as above Await PATIENT CARE ASSISTANT evaluation Abdominal pain is a little better Likely to be discharged today after evaluation by PATIENT CARE ASSISTANT Obesity Will need OP counselling Prediabetes, BGs stable Past tobacco abuse. DVT prophylaxis SCDs Re: Hemoperitoneum. Full code. Discussed with Significant other Total time spent on discharge = 35 minutes This includes examination of the patient, discharge planning, medication reconciliation, and communication with other providers. Discharge Instructions Date of Service Apr 14, 2017. Admission Reason for Admission: Abdominal Pain Discharge Discharge Diagnosis / Problem: Menorrhagia,Abdominla pian Discharge Goals Goal(s): Prevent Disease Progression Activity Recommendations Activity Limitations: resume your previous activity . Instructions / Follow-Up Instructions / Follow-Up Please make an appointment with your PCP in 1 week and keep appointment with your PATIENT CARE ASSISTANT Current Hospital Diet Patient's current hospital diet: Clear Liquid Diet Discharge Diet Recommended Diet: Regular Diet Pending Studies Studies pending at discharge: no Laboratory Results Hemoglobin A1c Test 04/12/17 19:10 Range/Units Estimated Average Glucose 117 mg/dl Hemoglobin A1c 5.7 H 4.5-5.6 % Medical Emergencies . Who to Call and When: Medical Emergencies: If at any time you feel your situation is an emergency, please call 911 immediately. . Non-Emergent Contact Non-Emergency issues call your: Primary Care Provider . . "Provider Documentation" section prepared by Catrachita Vidales. . VTE Core Measure Inpt VTE Proph given/why not?: SCD's <Electronically signed by Catrachita Vidales M.D.> Additional Copies To Radha Reyes M.D.
--- NOTE | 2017-04-20 18:11 | GYNECOLOGICAL CONSULTATION ---
DATE OF CONSULTATION: 04/14/[address] Alvarez. HISTORY OF PRESENT ILLNESS: This is a 51-year-old who presented to the Emergency Room on 04/13/2017 with complaint of right lower quadrant pain. The patient had been experiencing the pain for the last few days. She reported heavy vaginal bleeding as well. The patient had a history of heavy vaginal bleeding and was seeing Dr. Cordon from [place]. She had undergone a failed endometrial ablation on 02/24/2017 and had been treated with some trials of Depo-Provera injection. The patient was scheduled to follow up with Dr. Cordon to discuss possible hysterectomy. She was seen and admitted under medicine service for abdominal pain. Workup included a CT scan which showed possibly ruptured hemorrhagic cyst. She was managed for her pain and HOROLOGIST APPRENTICE consult was placed. I saw the patient on 04/14/2017 and reviewed her record as well as radiologic findings. The patient's bleeding on the day of her exam was stable. Hemoglobin was 11.9, hematocrit was 35.5. Vitals were stable as well. Blood pressure was 138/70, pulse was 86. The patient was examined and I discussed the radiologic findings with the patient. Since her H&H was stable and her bleeding had decreased at time of evaluation decision was therefore made to have patient follow up with Dr. Cordon as scheduled. She called while in the hospital and her appointment moved to a sooner date. PAST MEDICAL HISTORY: The patient is morbidly obese. PAST SURGICAL HISTORY: The patient had cholecystectomy. History of cataract surgery. FAMILY HISTORY: The patient has a family history of diabetes. SOCIAL HISTORY: The patient denied tobacco, drug or alcohol use. PHYSICAL EXAMINATION: GENERAL: Well-developed, well-nourished white female, morbidly obese, in no acute distress. HEART: S1, S2, regular rhythm and rate. LUNGS: Clear to auscultation bilaterally. ABDOMEN: Nontender, nondistended. PELVIC EXAM: Minimal blood in the vaginal vault. It was difficult to adequately examine the uterus and adnexa in the patient because of her morbid obesity. IMPRESSION AND PLAN: HOROLOGIST APPRENTICE Consult placed for abdominal pain. Workup and CT scan showed a ruptured hemorrhagic cyst. The patient is feeling much better and pain under control. Her vital signs are stable. The patient is scheduled for discussion with her primary ELEVATOR CONSTRUCTOR HYDRAULIC including possible hysterectomy. The findings of my HOROLOGIST APPRENTICE exam are discussed with Dr. Vidales. The plan is to have patient discharged home and follow up with her HOROLOGIST APPRENTICE.
== END 2017-04-14 12:30 | disposition home or self-care (01) ==
LOC: C.EDB 16:57 → C.MS2W 04-13 01:20 → ENRESERV 04-13 01:31
PROVIDERS: ADMIT Internal Medicine; ATTEND Internal Medicine
DX: R10.31 Right lower quadrant pain (principal); N92.0 Excessive and frequent menstruation with regular cycle; E66.9 Obesity, unspecified; Z90.49 Acquired absence of other specified parts of digestive tract; Z98.49 Cataract extraction status, unspecified eye; R73.03 Prediabetes; Z87.891 Personal history of nicotine dependence